=== PATIENT | male | born 1980 | race Caucasian/White ===

== ENCOUNTER 2018-08-19 03:58 | Emergency (ER) | payer MEDICAID ==
[2018-08-19 04:51] LABS: % BASOPHILS 0.5 % (0.0-2.0); % EOSINOPHILS 0.6 % (0.0-5.0); % LYMPHOCYTES 35.9 % (20.0-50.0); % MONOCYTES 8.1 % (2.0-10.0); % NEUTROPHILS 54.9 % (40.0-80.0); HEMATOCRIT 28.4 % (41.0-60); HEMOGLOBIN 8.6 gm/dL (12-16); LYMPHOCYTE ABSOLUTE 2.4 Th/cmm (1.5-3.0); MEAN CORPUSCULAR HEMOGLOBIN 19.3 pg (26.0-30.0); MEAN CORPUSCULAR HGB CONC 30.4 pg (28.0-36.0); MEAN PLATELET VOLUME 10.5 fl; MONOCYTE ABSOLUTE 0.5 Th/cmm (0.3-1.0); NEUTROPHILE ABSOLUTE 3.7 Th/cmm (1.8-8.0); PLATELET COUNT 318 Th/cmm (150-400); RED BLOOD COUNT 4.47 Mil/cmm (4.30-5.70); RED CELL DISTRIBUTION WIDTH 17.2 % (11.5-20.0); WHITE BLOOD COUNT 6.6 Th/cmm (4.8-10.8)
[2018-08-19 05:00] LABS: MEAN CELL VOLUME 63.5 fl (80-99)
--- NOTE | 2018-08-19 05:06 | ED Physician Chart ---
ED Chief Complaint/HPI - Patient Information Date Seen:: 08/19/18 Time Seen:: 04:35 Chief Complaint:: Epigastric pain History of Present Illness:: 37 yo male with history of cirrhosis due to alcohol abuse, had constant epigastric throbbing pain for 4 days. Patient stated that he had nausea and brown vomiting. Patient had previous 4 episodes of similar symptoms over past 1.5 years. Patient was diagnosed with esophagitis by GI before. Patient last saw a GI 3 months ago. Due to change of insurance, patient will have a GI appointment on 09/03/18. Allergies:: Allergies Allergy/AdvReac Type Severity Reaction Status Date / Time theophylline Allergy Verified 08/19/18 04:22 Vitals:: Vital Signs - 8 hr 08/19/18 04:00 Temp 97.2 F HR 125 RR 18 BP 140/77 O2 Sat % 100 ED Review of Systems - Review of Systems General/Constitutional: No fever Skin: No rash Head: No headache Eyes: No pain ENT: No nasal drainage Neck: No neck pain Cardio Vascular: No chest pain Pulmonary: No SOB GI: Nausea, Vomiting, Diarrhea, No melena Musculoskeletal: No bone or joint pain Neurological: No focal symptoms ED Past Medical History - Past Medical History Past Medical History: Asthma/COPD, Other (Cirrhosis, esophagitis, GI bleed) Social History: Non Smoker (former smoker), Alcohol, Illicit Drug Use (marijuana ) Surgical History: None Psychiatricy History: Bipolar Family Medical History - Family Member Mother History Unknown: Yes ED Physical Exam - Physical Examination General/Constitutional: Awake Head: Atraumatic Eyes: PERRL Skin: No skin lesions ENMT: Nasal exam nl Neck: No nuchal rigidity Respiratory: No Wheeze/Rhonchi/Rales Cardio Vascular: RRR, No murmur, gallop, rubs, NL S1 S2 Other GI comments:: Epigastric and RUQ tenderness Extremities: normal strength in all extremities Neuro/Psych: No focal deficits ED Labs/Radiology/EKG Results - Lab Results Results: Laboratory Tests 08/19/18 04:43 WBC 6.6 RBC 4.47 Hgb 8.6 L Hct 28.4 L MCV 63.5 L MCH 19.3 L MCHC Differential 30.4 RDW 17.2 Plt Count 318 MPV 10.5 Neutrophils % 54.9 Lymphocytes % 35.9 Monocytes % 8.1 Eosinophils % 0.6 Basophils % 0.5 Laboratory Last Values WBC 6.6 Th/cmm (4.8-10.8) 08/19/18 04:43 RBC 4.47 Mil/cmm (4.30-5.70) 08/19/18 04:43 Hgb 8.6 gm/dL (12-16) L 08/19/18 04:43 Hct 28.4 % (41.0-60) L 08/19/18 04:43 MCV 63.5 fl (80-99) L 08/19/18 04:43 MCH 19.3 pg (26.0-30.0) L 08/19/18 04:43 MCHC Differential 30.4 pg (28.0-36.0) 08/19/18 04:43 RDW 17.2 % (11.5-20.0) 08/19/18 04:43 Plt Count 318 Th/cmm (150-400) 08/19/18 04:43 MPV 10.5 fl 08/19/18 04:43 Neutrophils % 54.9 % (40.0-80.0) 08/19/18 04:43 Lymphocytes % 35.9 % (20.0-50.0) 08/19/18 04:43 Monocytes % 8.1 % (2.0-10.0) 08/19/18 04:43 Eosinophils % 0.6 % (0.0-5.0) 08/19/18 04:43 Basophils % 0.5 % (0.0-2.0) 08/19/18 04:43 PT 9.7 SECONDS (9.5-11.5) 08/19/18 04:43 INR 0.93 (0.5-1.4) 08/19/18 04:43 PTT (Actin FS) 20.9 SECONDS (26.0-38.0) L 08/19/18 04:43 Sodium 138 mEq/L (136-145) 08/19/18 04:43 Potassium 3.1 mEq/L (3.5-5.1) L 08/19/18 04:43 Chloride 103 mEq/L (98-107) 08/19/18 04:43 Carbon Dioxide 26.4 mEq/L (21.0-31.0) 08/19/18 04:43 Anion Gap 11.7 (7.0-16.0) 08/19/18 04:43 BUN 15 mg/dL (7-25) 08/19/18 04:43 Creatinine 1.5 mg/dL (0.7-1.3) H 08/19/18 04:43 Est GFR ( Amer) > 60.0 ml/min (>90) 08/19/18 04:43 Est GFR (Non-Af Amer) 56.0 ml/min 08/19/18 04:43 BUN/Creatinine Ratio 10.0 08/19/18 04:43 Glucose 115 mg/dL (70-105) H 08/19/18 04:43 Calcium 9.4 mg/dL (8.6-10.3) 08/19/18 04:43 Total Bilirubin 0.2 mg/dL (0.3-1.0) L 08/19/18 04:43 AST 12 U/L (13-39) L 08/19/18 04:43 ALT 9 U/L (7-52) 08/19/18 04:43 Alkaline Phosphatase 62 U/L (34-104) 08/19/18 04:43 Total Protein 6.8 gm/dL (6.0-8.3) 08/19/18 04:43 Albumin 3.8 gm/dL (4.2-5.5) L 08/19/18 04:43 Globulin 3.0 gm/dL 08/19/18 04:43 Albumin/Globulin Ratio 1.3 (1.0-1.8) 08/19/18 04:43 Amylase 51 U/L (29-103) 08/19/18 04:43 Lipase 50 U/L (11-82) 08/19/18 04:43 ED Assessment - Assessment General Assessment: Epigastric pain Normocytic anemia Esophagitis Cirrhosis Assessment/Comments:: CBC, CMP, lipase, amylase, UA, urine drug screen Protonix 40mg IV Patient refused GI cocktail, stating that he had GI cocktail at home and they were not effective. After being refused additional pain medication before lab results became available, patient left without signing AMA form at 05:40. ED Septic Shock - . Is Septic Shock (SBP<90, OR Lactate>4 mmol\L) present?: No - <6hrs of presentation: Vital Signs: Vital Signs - 8 hr 08/19/18 04:00 Temp 97.2 F HR 125 RR 18 BP 140/77 O2 Sat % 100 ED Reassessment (Disposition) - Reassessment Reassessment Condition:: Unchanged - Patient Disposition Discharge/Transfer:: Yakov/[email or web address]
[2018-08-19 05:19] LABS: INR 0.93 (0.5-1.4); PROTHROMBIN TIME (TEST) 9.7 SECONDS (9.5-11.5)
[2018-08-19 05:40] LABS: ALB/GLOB RATIO 1.3 (1.0-1.8); ALBUMIN 3.8 gm/dL (4.2-5.5); ALKALINE PHOSPHATASE 62 U/L (34-104); AMYLASE SERUM 51 U/L (29-103); ANION GAP 11.7 (7.0-16.0); BILIRUBIN,TOTAL 0.2 mg/dL (0.3-1.0); BUN - UREA NITROGEN 15 mg/dL (7-25); CALCIUM SERUM 9.4 mg/dL (8.6-10.3); CARBON DIOXIDE 26.4 mEq/L (21.0-31.0); CHLORIDE 103 mEq/L (98-107); CREATININE - SERUM 1.5 mg/dL (0.7-1.3); GFR AFRICAN-AMERICAN > 60.0 ml/min (>90); GLUCOSE 115 mg/dL (70-105); LIPASE 50 U/L (11-82); POTASSIUM SERUM 3.1 mEq/L (3.5-5.1); SGOT 12 U/L (13-39); SGPT/ALT 9 U/L (7-52); SODIUM SERUM 138 mEq/L (136-145); TOTAL PROTEIN,SERUM 6.8 gm/dL (6.0-8.3)
== END 2018-08-19 05:35 | disposition left against medical advice (07) ==
LOC: ER 03:58
DX: K74.60 Unspecified cirrhosis of liver (principal); K20.9 Esophagitis, unspecified; D64.9 Anemia, unspecified; J44.9 Chronic obstructive pulmonary disease, unspecified; Z87.891 Personal history of nicotine dependence; Z88.8 Allergy status to other drugs, medicaments and biological substances
CPT/HCPCS: 99284; 96374; 36415; 85025; 85610; 82150; 83690; 80053; C9113; Z7502